=== PATIENT | male | born 1980 | race Caucasian/White ===

== ENCOUNTER → 2022-03-18 16:35 | Outpatient (CLI) | payer OTHER, SELFPAY ==
[2022-03-18 17:26] LABS: Motility Quality Immotile Sperm (Mod-Rapid); Semen Viscosity Normal (Normal); Sperm Motility 0 % (50-90); WBCs,Semen Moderate
[2022-03-18 17:34] LABS: Sperm Count 0 mil/mm3 (20-160)
== END ==
PROVIDERS: Visit Provider Urology
DX: Z31.41 Encounter for fertility testing (principal)
CPT/HCPCS: 89320

== ENCOUNTER → 2022-11-03 12:00 | Outpatient (CLI) | payer OTHER, SELFPAY | PROVIDERS: PCP Nurse Practitioner Family; Visit Provider Nurse Practitioner Family | DX: R05.9 Cough, unspecified (principal); J02.0 Streptococcal pharyngitis | CPT/HCPCS: 87070; 87077; 87186; C9803; U0003; U0005 ==

== ENCOUNTER 2023-09-08 10:33 | Emergency (ER) | payer OTHER, SELFPAY ==
[2023-09-08 10:34] VITALS: BP 139/84; PULSE 69; RESP 16; TEMP 36.4; O2SAT 100; BMI 28.5
--- NOTE | 2023-09-08 10:38 | ECG_ITS ---
APPROVED REPORT Exam: Resting ECG HR:76 bpm ECG Measurements Heart Rate 76 AXES CO 128 P 56 QRSd 108 QRS 65 QT 402 T 63 QTc 433 Conclusion SINUS RHYTHM NORMAL ECG UNCONFIRMED REPORT Electronically signed by : Cedric Shelby MD 09/10/2023 11:05:14
--- NOTE | 2023-09-08 10:43 | HMH.EDGENADL ---
Discharge Plan Disposition Patient Disposition: Home, Self-Care Referrals Follow up/Referrals: Provider,Referral, MD [Primary Care Provider] - See instructions Activity Restrictions/Add. Instructions Additional Instructions/Restrictions: At this time it was felt you are safe to be discharged home. If new or worsening symptoms please do not hesitate to return the emergency department. If symptoms persist please follow-up with your family doctor as you are able. Clinical Impressions Clinical Impression: Vomiting Instructions Patient Instructions: DI for Dehydration -- Adult, DI for Muscle Weakness Discharge ED Provider: Heladio Hunt General Adult HPI General Chief complaint: Nausea/Vomiting/Diarrhea Stated complaint: vomiting and cant feel hands Time Seen by Provider: 09/08/23 10:38 History of Present Illness HPI narrative: Patient is a 43-year-old male with no significant past medical history who presents emergency department for evaluation of vomiting. Onset was acute, occurring at approximately 5 this morning, multiple episodes of nonbloody vomiting. Patient states multiple times throughout the interview that he is dehydrated. There is intermittent cramping and sensation changes of the bilateral upper extremities which he attributes to this dehydration. In addition he has a headache which she cannot further qualify which he also attributes to dehydration upon multiple questioning. Denies chest pain, abdominal pain, other acute complaints at this time. Has sick contact with strep. Denies substance abuse. Related Data Allergies Allergy/AdvReac Type Severity Reaction Status Date / Time Sulfa (Sulfonamide Allergy Mild Rash Verified 09/08/23 11:10 Antibiotics) [facility] Disclaimer: The information contained in this section may have been updated after the patient was seen, as this information can be updated by other users. Medical History No active medical problems Surgical History H/O hernia repair History of appendectomy Social History Smoking Status: Current every day smoker alcohol intake: never substance use type: denies use current occupational status: employed Travel in the last 8 weeks: None household members: none housing: house ROS Obtained: Yes Systems reviewed as appropriate & no additional complaints except as documented Physical Exam General General appearance: alert and in no apparent distress Head Head exam: atraumatic and normocephalic Eye Eye exam: Present PERRL and EOMI ENT ENT exam: Present normal oropharynx and mucous membranes moist Neck Neck exam: Present normal inspection Chest Chest inspection: Present normal inspection and symmetric chest wall rise Respiratory Respiratory exam: Present normal lung sounds bilaterally; Absent respiratory distress Cardiovascular Cardiovascular exam: Present regular rate, normal rhythm and other (No pitting edema, palpable dorsal pedal pulse bilaterally) Abdominal Exam Abdominal exam: Present soft; Absent distention, tenderness, guarding or rebound Extremities Exam Extremities exam: Present normal inspection Neurological Exam Neurological exam: Present alert, CN II-XII intact and other (5 out of 5 strength bilateral upper and lower extremities) Psychiatric Psychiatric exam: Present normal affect Skin Skin exam: Present warm and dry; Absent rash Medical Decision Making Juan Inquiry Pt receiving controlled substance: No Vital Signs: 09/08/23 10:34 09/08/23 10:50 09/08/23 11:01 Temperature 97.6 F Temperature Source Oral Pulse Rate 67 66 Pulse Rate [Left Radial] 69 Respiratory Rate 16 15 14 Blood Pressure 121/78 Blood Pressure [Right Arm] 139/84 Blood Pressure Mean 88 Blood Pressure Mean [Right Arm] 102 Blood Pressure Source [Right Arm] [employer]omat
[2023-09-08 10:50] VITALS: PULSE 67; RESP 15; O2SAT 96
--- NOTE | 2023-09-08 10:51 | PC.NURSE ---
pt refused Ofirmkem and Cornelius d/t I think everything I am having problems with right now is due to dehydration so I only want the fluids . notified.
--- NOTE | 2023-09-08 11:00 | PC.NURSE ---
Pt provided with warm blanket
[2023-09-08 11:01] VITALS: BP 121/78; PULSE 66; RESP 14; O2SAT 100
[2023-09-08 11:03] LABS: Basophils % 0.2 % (0.1-2.0); Eosinophils % 0.1 % (0.1-12.0); Hematocrit 48.9 % (42.0-52.0); Hemoglobin 16.7 g/dL (14.1-18.0); Lymphocytes # 1.3 K/mm3 (0.7-4.5); Lymphocytes % 9.9 % (10-50); Mean Corpuscular HGB Conc 34.1 g/dL (31.8-35.4); Mean Corpuscular Hemoglobin 32.8 pg (27.0-31.2); Mean Platelet Volume 8.4 fl (7.4-10.4); Monocytes # 0.4 K/mm3 (0.1-1.0); Monocytes % 3.1 % (1.7-9.3); Neutrophils # 11.4 K/mm3 (1.8-7.8); Neutrophils % 86.7 % (37.0-80.0); Platelet Count 282 K/mm3 (142-424); Red Blood Count 5.09 M/mm3 (4.60-6.20); White Blood Count 13.2 K/mm3 (4.8-10.8)
[2023-09-08 11:04] LABS: Alanine Aminotransferase 34 U/L (12-78); Albumin Level 4.8 g/dl (3.5-5.0); Albumin/Globulin Ratio 1.3 (1.1-1.8); Alkaline Phosphatase 60 U/L (38-126); Anion Gap 16.7 mEq/L (5-15); Aspartate Amino Transferase 39 U/L (17-59); Blood Urea Nitrogen 12 mg/dl (9-20); Calcium 9.3 mg/dl (8.4-10.2); Carbon Dioxide 24 mmol/L (22.0-30.0); Chloride 103 mmol/L (98-107); Creatine Kinase 120 U/L (55-170); Creatinine Clearance Estimated 126 mL/min (50-200); Estimated Glomerular Filt Rate 81 ml/min (>60); GFR (African American) 98 ML/MIN (>60); Globulin 3.7 g/dL (1.3-3.2); Glucose 164 mg/dl (74-100); Lipase 83 U/L (23-300); Magnesium 1.6 mg/dl (1.6-2.3); Potassium 3.7 mmoL/L (3.5-5.1); Sodium 140 mmol/L (136-145); Total Protein,Serum 8.5 g/dl (6.3-8.2)
[2023-09-08 11:08] LABS: MANUAL DIFFERENTIAL MANUAL DIFFERENTIAL (MANUAL DIFF)
--- NOTE | 2023-09-08 11:15 | PC.NURSE ---
pt refused covid/flu swab, pt states that he defiantly does not have covid, he just needed some fluids and he is already feeling so much better.
--- NOTE | 2023-09-08 11:33 | PC.NURSE ---
Pt given gatorade and saltines for PO challenge. Pt tolerating well. Pt reports feeling better.
[2023-09-08 11:41] LABS: Lymphocytes % 8 % (10-50); Monocytes % 5 % (2-9); Neutrophils % 87 % (42-76); Platelet Estimate Normal; RBC Morphology Normal; Total Cells Counted 100
[2023-09-08 11:49] VITALS: BP 137/80; PULSE 67; RESP 15; TEMP 36.4; O2SAT 99
== END 2023-09-08 11:49 | disposition home or self-care (01) ==
PROVIDERS: Emergency Provider Emergency Medicine
DX: R11.2 Nausea with vomiting, unspecified (principal); R51.9 Headache, unspecified; F17.210 Nicotine dependence, cigarettes, uncomplicated
CPT/HCPCS: 80053; 82550; 83690; 83735; 85007; 85025; 93005; 96361; 96374; 96375; 99284

== ENCOUNTER → 2023-10-19 10:21 | Outpatient (CLI) | payer OTHER, SELFPAY | PROVIDERS: Visit Provider Surgery | DX: K64.9 Unspecified hemorrhoids (principal) ==

== ENCOUNTER 2023-10-31 10:04 | Day surgery (SDC) | payer OTHER, SELFPAY ==
[2023-10-19 09:04] VITALS: BMI 28.3
[2023-10-31] VITALS (11 sets, daily range): BP systolic 113–151; BP diastolic 77–96; PULSE 65–86; RESP 16–18; TEMP 36.2; O2SAT 95–98
[2023-10-31 10:24] LABS: Basophils % 0.4 % (0.1-2.0); Eosinophils # 0.1 K/mm3 (0.0-0.4); Eosinophils % 0.8 % (0.1-12.0); Hematocrit 47.5 % (42.0-52.0); Hemoglobin 16.1 g/dL (14.1-18.0); Lymphocytes # 1.4 K/mm3 (0.7-4.5); Mean Corpuscular HGB Conc 33.8 g/dL (31.8-35.4); Mean Corpuscular Hemoglobin 32.3 pg (27.0-31.2); Mean Corpuscular Volume 95.5 fl (80-94); Mean Platelet Volume 8.3 fl (7.4-10.4); Monocytes # 0.4 K/mm3 (0.1-1.0); Monocytes % 5.7 % (1.7-9.3); Neutrophils # 5.2 K/mm3 (1.8-7.8); Platelet Count 262 K/mm3 (142-424); Red Blood Count 4.97 M/mm3 (4.60-6.20); Red Cell Distribution Width 13.3 % (11.5-17.5); White Blood Count 7.1 K/mm3 (4.8-10.8)
[2023-10-31 10:42] LABS: Chloride 101 mmol/L (98-107)
[2023-10-31 10:43] LABS: Potassium 4.4 mmoL/L (3.5-5.1); Sodium 138 mmol/L (136-145)
[2023-10-31 10:45] LABS: Blood Urea Nitrogen 11 mg/dl (9-20); Creatinine Clearance Estimated 129 mL/min (50-200); Estimated Glomerular Filt Rate 81 ml/min (>60); GFR (African American) 98 ML/MIN (>60)
[2023-10-31 10:46] LABS: Calcium 8.6 mg/dl (8.4-10.2); Carbon Dioxide 33 mmol/L (22.0-30.0); Glucose 103 mg/dl (74-100)
--- NOTE | 2023-10-31 10:47 | SUR.PREOP ---
Pt did not have an enema order. Dr Rojas informed and ordered 1 fleets enema for patient to do in preop.
--- NOTE | 2023-10-31 10:48 | SUR.PREOP ---
educated patient on enema use.
[2023-10-31 10:49] LABS: Anion Gap 8.4 mEq/L (5-15)
--- NOTE | 2023-10-31 12:04 | P.PNANES_ITS ---
[facility] Disclaimer: The information contained in this section may have been updated after the patient was seen, as this information can be updated by other users. Medical History Hemorrhoid No active medical problems Surgical History H/O hernia repair History of appendectomy Social History Smoking Status: Current some day smoker alcohol intake: current substance use type: denies use current occupational status: employed Travel in the last 8 weeks: None household members: none housing: house [facility] Anesthesia Checklist Patient Identification Patient Identification: Arm Band, Family and Verbal (Name & ) Structural Data Admitted From: Home Planned Operative Procedure/s: EUA; Sigmoidoscopy; hemorrhoidectomy Consent for Planned Operative Procedure(s) Verified: Yes Verified Documents: Surgical Consent and History and Physical NPO Status Verified Time NPO: 05:30 Chart Verification Results Verified: CBC, BMP and ECG Additional verifications Patient : No Anesthesia Reactions: No Hx Blood Transfusions: No Blood Transfusion Reaction: No Cephalosporin Allergy: No Cardiovascular Assessment Heart Sounds: S1 & S2 Pulse Rhythm: Irregular Airway Assessment Mallampati Score:: Class II C-Spine Mobility Assessed: Yes (FROM) TMJ Mobility Assessed: Yes Dentition: Good Dentition (Nothing loose per pt.) Neurological Assessment Level of Consciousness: Awake, Alert, Appropriate and Follows Commands Hx Seizures: No Numbness or tingling in extremities: No Anesthesia Plan Anesthesia Risk discussed: Yes Anesthesia Plan: Verified ASA Class: II Anesthesia Type: General
--- NOTE | 2023-10-31 13:17 | EXP.OP.NOTE ---
Date of procedure: 10/31/23 Pre-op Diagnosis:: Hemorrhoids Post-op Diagnosis:: Same Procedure performed:: Exam under anesthesia Flexible sigmoidoscopy Surgeon:: Nabor Rojas MD Anesthesia: LMA Estimated blood loss (mL): 0 Clinical Note:: Patient is a 43-year-old male who resides in [place] whom I had previously seen in the office for hemorrhoids in September 2022. At that time he described hemorrhoid symptoms for about 5 or 6 years. He had tried numerous [id number] regimens and states that he had seen a couple of surgeons in the past who recommended surgery. He had previously seen a surgeon in [facility] who had recommended surgery and the patient declined at that time. When I saw him a year ago he had symptoms consistent with hemorrhoid prolapse with occasional blood with bowel movements and occasional fecal incontinence. Examination at that time was relatively unremarkable consistent with internal hemorrhoids. I had started him on initially nonoperative management with planned follow-up and if symptoms were refractory possible exam under anesthesia with probable surgical intervention including potential PPH hemorrhoid stapling. He did not keep follow-up appointment at that time. He now presents to the office with some recurrent symptoms. He states that he has nonstop mucus discharge. He actually keeps a paper towel in place. If he has a bowel movement the symptoms are relatively persistent. Without a bowel movement they seem to be somewhat improved. He describes unusual bowel movements and the sensation of incomplete evacuation. Operative findings:: Limited proctosigmoidoscopy was unremarkable other than findings consistent with prolapsing hemorrhoids. He had hemorrhoidal prolapse which was Misha circumferential mostly in the left and right posterior lateral locations. Operative note:: Patient was taken to the operating room. He was positioned in supine position. General anesthesia was induced via LMA. He was positioned in lithotomy position. Digital examination was performed. He was noted to have some external hemorrhoids mostly in the right posterior lateral location and continuous somewhat, but less so to the left posterior lateral location. He did have some degree of circumferential prolapsing internal hemorrhoids but most pronounced posteriorly at which point there was some excoriated mucosa at the dentate line. The flexible endoscope was inserted. It was advanced to the distal sigmoid which was unremarkable. Retroflexion was performed within the rectum which revealed some nearly circumferential prolapsing internal hemorrhoids. This did not appear to be amenable to endoscopic banding. Patient was then prepped and draped for possible hemorrhoidectomy. [place] anoscope was inserted. This was unable to provide good visualization of the pathologic hemorrhoids posteriorly. Rectal retractor was inserted and positioned. Limited visualization was achieved. There was prolapsing hemorrhoids Misha circumferentially posteriorly with some degree anteriorly but less so. It was felt that the patient would benefit best from aggressive medical management initially and possibly return for PPH hemorrhoid stapling at a later date. Given the probable suboptimal outcome from traditional hemorrhoidectomy at this time procedure was not performed. Therefore retractor was removed. Patient tolerated the procedure well with no immediate complications. Plan will be for initial nonoperative medical management with possible PPH hemorrhoid stapling versus colorectal surgical evaluation. Condition: stable Disposition: PACU Complications:: None immediately apparent
--- NOTE | 2023-10-31 13:31 | P.PNANES_ITS ---
[facility] Anesthesia Record Part I Anesthesia Record I Intake, IV Amount: 500 Hydration: Adequate Estimated blood loss (mL): 25 Urine output (mL): 0 Blood Products used (#): none Blood Pressure: 130/94 SaO2: 97 Pulse Rate: 85 Airway Patency: Patent Respiratory Rate: 16 Temperature: 97.1 F Patient is:: Awake (Talking) and Stable Stable to PACU at:: 13:30
--- NOTE | 2023-10-31 14:36 | SUR.PHASEII ---
clinic pharmacy has been contacted for bedside delivery, waiting to discharge for medication delivery.
--- NOTE | 2023-10-31 14:38 | P.PNANES_ITS ---
[facility] Anesthesia Record Part I Anesthesia Record I Intake, IV Amount: 300 Hydration: Adequate Estimated blood loss (mL): 10 Urine output (mL): 0 Blood Products used (#): none Blood Pressure: 151/91 SaO2: 96 Pulse Rate: 70 Airway Patency: Patent Respiratory Rate: 16 Temperature: 97.1 F Patient is:: Awake and Stable Stable to PACU at:: 14:40
--- NOTE | 2023-11-01 13:00 | P.PNANES_ITS ---
[facility] Anesthesia Record Part II Anesthesia Record Part II Discharge Time: 13:55 Destination: Surgical Day Care (OP Surgery) PACU nurse assessment reviewed?: Yes Patient Condition:: Good Anesthesia Complications:: None Swallowing reflex intact?: Yes Airway Patency: Patent Cyanosis?: No Blood Pressure: 145/85 SaO2: 97 Respiratory Rate: 18 Pulse Rate: 76 Temperature: 97.1 F Mental Status: Alert & Oriented Pain level:: 0 Nausea and/or vomitting:: None Intake, IV Amount: 0 Hydration: Adequate
[2023-11-01 13:02] VITALS: BP 145/85; PULSE 76; RESP 18; TEMP 36.2; O2SAT 97
== END 2023-10-31 14:45 | disposition home or self-care (01) ==
PROVIDERS: PCP Surgery; Visit Provider Surgery
PROC: (CPT 45330; principal; 2023-10-31 11:15)
DX: K64.8 Other hemorrhoids (principal)
CPT/HCPCS: 45330; 36415; 80048; 85025; 96374; J2405